=== PATIENT | female | born 1960 | race Caucasian/White ===

== ENCOUNTER 2022-08-21 06:31 | Day surgery (SDC) | payer MEDICAID ==
[~2022-08-21] VITALS: Ht 152.4 cm; Wt 78.5 kg
[2022-08-21] MEDS ORDERED: SIMETHICONE 40 MG/0.6 ML ML ONE (07:10)
[2022-08-21] MEDS ORDERED: fentaNYL CITRATE/PF 100 MCG/2 ML AMP ONE (07:10)
[2022-08-21] MEDS ORDERED: MIDAZOLAM HCL 5 MG/5 ML VIAL ONE (07:11)
[2022-08-21 15:24] VITALS: BP_SYST 121
== END 2022-08-21 09:55 | disposition home or self-care (01) ==
LOC: SDS 06:31 → SMU 07:27 → SDS 09:55
PROVIDERS: ATTEND Internal Medicine
DX: Z12.11 Encounter for screening for malignant neoplasm of colon (principal); Z90.710 Acquired absence of both cervix and uterus; Z20.822 Contact with and (suspected) exposure to COVID-19
CPT/HCPCS: 45378; 87426; 36415; 99152; G0378; J2250; J3010